=== PATIENT | male | born 1945 | race American Indian/Alaskan Native ===

== ENCOUNTER 2016-10-23 15:49 | Outpatient (CLI) | payer MEDICARE ==
--- NOTE | 2016-10-24 07:58 | Magnetic Resonance Report ---
MRI OF THE BRAIN WITHOUT CONTRAST: HISTORY: Weakness, numbness in left leg PROCEDURE: Multiplanar, multisequence MR imaging of the brain without IV contrast was performed. FINDINGS: No comparison at this facility. There are mild nonspecific T2 signal abnormalities in the periventricular white matter. The remaining brain parenchyma signal intensity and its chaney-white interface are within normal limits on all sequences. No evidence for acute ischemia, hemorrhage or mass. No chronic infarct or extra-axial fluid collection. The midline structures are central. The basal cisterns are patent. Normal ventricular size. The orbital cavities and sella turcica demonstrate no abnormality. The visualized paranasal sinuses and mastoid air cells are well aerated. IMPRESSION: Mild nonspecific periventricular white matter changes. This most likely represents chronic microvascular ischemic changes. Areas of demyelinization or multiple sclerosis could be considered but is thought less likely. Please correlate with the patient's clinical presentation. No evidence for acute ischemia, hemorrhage or mass.
== END 2016-10-23 15:50 | disposition home or self-care (01) ==
LOC: MRI 15:49
PROVIDERS: ATTEND Family Medicine
DX: G35 Multiple sclerosis (principal); I48.91 Unspecified atrial fibrillation; I10 Essential (primary) hypertension; R20.0 Anesthesia of skin; Z87.891 Personal history of nicotine dependence
CPT/HCPCS: 70551

== ENCOUNTER 2017-03-12 10:37 | Outpatient (CLI) | payer MEDICARE ==
--- NOTE | 2017-03-13 10:03 | Vascular Lab Report ---
LEFT LOWER EXTREMITY ARTERIAL DUPLEX: REASON FOR EXAM: Peripheral arterial disease. LIMITED COMMENTS ON THE RIGHT: Biphasic and triphasic waveforms are seen distally. Findings are consistent with abnormal perfusion. Findings are consistent with the ability to heal distal wounds. COMMENTS ON THE LEFT: Biphasic waveforms are seen proximally. Biphasic waveforms are seen distally. No significant velocity gradients are identified. No focal significant plaque is identified. Findings are consistent with abnormal perfusion. Findings are consistent with the ability to heal distal wounds. IMPRESSION: RIGHT: Mild arterial disease indicated by distal biphasic waveform. LEFT:Mild arterial disease indicated by diffuse left lower extremity biphasic waveforms.
== END 2017-03-12 10:38 | disposition home or self-care (01) ==
LOC: VAS 10:37
PROVIDERS: ATTEND Family Medicine
DX: I70.212 Atherosclerosis of native arteries of extremities with intermittent claudication, left leg (principal); I10 Essential (primary) hypertension; I48.91 Unspecified atrial fibrillation; Z87.891 Personal history of nicotine dependence

== ENCOUNTER 2017-10-31 09:09 | Outpatient (CLI) | payer MEDICARE ==
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
== END 2017-10-31 09:10 | disposition home or self-care (01) ==
LOC: XRAY 09:09
PROVIDERS: ATTEND Family Medicine
DX: M47.892 Other spondylosis, cervical region (principal); I10 Essential (primary) hypertension; I48.91 Unspecified atrial fibrillation; Z87.891 Personal history of nicotine dependence
CPT/HCPCS: 72050

== ENCOUNTER 2019-03-22 19:54 | Emergency (ER) | payer MEDICARE ==
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
[2019-03-22 20:03] VITALS: BP 114/78
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
[2019-03-23] MEDS ORDERED: traMADol 50 MG TAB PO ONE (00:25)
[2019-03-23] MEDS ORDERED: ACETAMINOPHEN 500 MG TAB PO ONE (00:25)
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
== END 2019-03-23 03:35 | disposition home or self-care (01) ==
LOC: ED 19:54
DX: M62.830 Muscle spasm of back (principal); M62.838 Other muscle spasm; Z79.899 Other long term (current) drug therapy; V49.49XA Driver injured in collision with other motor vehicles in traffic accident, initial encounter; Y93.89 Activity, other specified; Y92.410 Unspecified street and highway as the place of occurrence of the external cause; Y99.8 Other external cause status
CPT/HCPCS: 72040; 72100